=== PATIENT | female | born 1945 | race Caucasian/White ===

== ENCOUNTER → 2018-06-28 12:39 | Outpatient (CLI) | payer OTHER, SELFPAY ==
[2018-06-28 13:19] LABS: Add Manual Diff / Slide Review NO; Eosinophils Percent Auto 1.6 % (2-4); Hematocrit 39.6 % (36-46); Hemoglobin 13.5 g/dL (12.0-16.0); Mean Corpuscular Hemoglobin 29.6 PG (26-34); Mean Corpuscular Volume 87.1 fL (80-100); Monocytes Percent Auto 5.2 % (3-14); Neutrophils Absolute Auto 3700 /uL (3000-5900); Neutrophils Percent Auto 56.2 % (50-75); Platelet Count 238 X10^3/uL (150-400); Red Blood Cell Count 4.55 X10^6/uL (4.0-5.2); Red Cell Distribution Width 13.2 % (11.6-14.8); White Blood Cell Count 6.6 X10^3/uL (4.5-11.0)
[2018-06-28 13:21] LABS: Prothrombin Time 11.4 SECONDS (10.1-12.7)
[2018-06-28 13:24] LABS: PTT Partial Thromboplastin Tim 32 SECONDS (26.4-36.2)
[2018-06-28 14:56] LABS: BUN Creatinine Ratio 28.9 (6-22); Blood Urea Nitrogen 26 mg/dL (7-17); Carbon Dioxide 27 mmol/L (22-32); Chloride 102 mmol/L (98-107); Estimated Glomerular Filt Rate > 60.0 mL/min (>60); Glucose 108 mg/dL (80-110); HEMOLYSIS < 15 (0-50); Potassium 3.3 mmol/L (3.4-5.1); Sodium 141 mmol/L (137-145)
== END ==
PROVIDERS: PCP Nurse Practitioner Family; Visit Provider Orthopaedic Surgery
DX: Z01.818 Encounter for other preprocedural examination (principal); Z01.812 Encounter for preprocedural laboratory examination; Z51.81 Encounter for therapeutic drug level monitoring
CPT/HCPCS: 36415; 80048; 85025; 85610; 85730; 93005

== ENCOUNTER 2018-07-14 06:04 | Inpatient (IN) | payer OTHER, SELFPAY ==
[2018-06-30 10:56] VITALS: BMI 31.5
[2018-07-14] VITALS (17 sets, daily range): BP systolic 93–137; BP diastolic 57–89; PULSE 61–91; RESP 14–22; TEMP 36.1–36.8; O2SAT 92–99; BMI 31.5; BMI 33.0
--- NOTE | 2018-07-14 | DI.RAD.S_ITS ---
PROCEDURE: XR SHOULDER LT MIN 2V INDICATIONS: total left shoulder TECHNIQUE: 2 views of the shoulder were acquired. COMPARISON: [facility], , SHOULDER MINIMUM 2 VIEW LEFT, 12/31/2014, 13:20. FINDINGS: Bones: Status post left shoulder arthroplasty. Expected postoperative alignment. No fractures or dislocations. No suspicious bony lesions. Visualized ribs appear intact. Soft tissues: Overlying postsurgical changes.. IMPRESSION: Expected postoperative appearance. Dictated by: Christiano Rivas M.D. on 07/14/2018 at 14:02 Approved by: Christiano Rivas M.D. on 07/14/2018 at 14:07
[2018-07-14] MEDS: LACTATED RINGERS 1,000 ML 42 ML IV ×2 (06:55→11:19)
[2018-07-14] MEDS: VANCOMYCIN 1,000 MG/200 ML FROZ.PIGGY 200 MG IV (07:01)
[2018-07-14] MEDS: ACETAMINOPHEN 325 MG TABLET 975 MG PO (07:26)
[2018-07-14] MEDS: MIDAZOLAM 2 MG/2 ML VIAL IV (07:42)
--- NOTE | 2018-07-14 07:52 | SUR.PREOP ---
Block start time [0746] . Monitoring initiated and maintained throughout procedure. Oxygen and medications given per anesthesiologist instructions. Patient remained stable throughout procedure, no adverse reactions noted. Block end time [0750].
--- NOTE | 2018-07-14 07:54 | PM.PREOP ---
Pre-operative Note Interval Note Pre-op Check: Yes History & Physical Reviewed by Physician Changes: No
[2018-07-14] MEDS: GENTAMICIN 200 MG in SODIUM CHLORIDE 0.9% 100 ML 105 ML IV (08:18)
--- NOTE | 2018-07-14 08:34 | SUR.OPER ---
Beach chair with Rivera/Aditi shoulder positioner. Lower body on padded OR bed. Head in foam padded head cradle, secured with straps. Non-operative arm secured <90 degrees abduction. Pillow under knees. Safety belt at thigh. Cloth tape over blanket over lower legs.
--- NOTE | 2018-07-14 08:35 | P.PCN_ITS ---
Procedures Date/Time Date of procedure: 07/14/18 Time of procedure: 07:45 Nerve Block Time out performed: Yes Local anesthetic used: other (15mL 0.5 opivacaine, 5mL 2* idocaine) Location of anesthetic used: interscalene Amount of anesthesia used (mL): 20 Nerve blocks: brachial plexus (interscalene) Procedure successful: Yes Patient tolerated procedure: well Complications: none Additional comments: LEFT Brachial plexus nerve block for post operative pain management as discussed with surgeon. Risks and benefits discussed, including bleeding, infection, intravascular injection, nerve damage, block failure. Standard ASA monitors, NC O2. Pt supine. Chloroprep site preparation, sterile technique. Brachial plexus identified with US guidance, traced from supraclavicular to interscalene. 1mL 2% lidocaine skin wheal. 22g x 50mm Pajunk advanced with in-plane US guidance to brachial plexus. Negative aspiration. LA injected with intermittent negative aspiration. Good LA spread noted on US. No pain, no paraesthesia. Pt tolerated procedure well. Vital signs stable.
[2018-07-14] MEDS: LIDOCAINE 1% W/EPI INJ 20 ML INJ (08:49)
--- NOTE | 2018-07-14 10:02 | P.OP_ITS ---
Operative Date/Time/Diagnoses Date of procedure: 07/14/18 Time of procedure: 08:00 Pre-op diagnosis: Left shoulder arthritis Post-op diagnosis: same Procedure & Clinicians Procedure: Left total shoulder arthroplasty Same procedure as scheduled: Yes Indications: Left glenohumeral joint end-stage arthritis unresponsive to conservative treatment. Surgeon: Yayo Rubalcava Shuttle Fitting Supervisor: Yi Francois Click Yes if Unassisted: No Anesthesia Type: General and Peripheral nerve block Operative Notes Findings: End-stage arthritis to the glenohumeral joint with no sign of any rotator cuff tears. Closure Type: primary Specimen(s): none sent Implants & Drains: Tornier 2A stem, 43x16 low offset head, S35 glenoid Applied: drain(s) and implant(s) Estimated Blood Loss (mL): 25 Blood products transfused: none Procedure in detail: On date of service, Patient was met in the holding area. The operative site was signed and witnessed by the OR staff. The surgeries once again discussed with the patient and any remaining questions they had were answered fully. Patient was taken back to the operating theater and placed on the operating table in a supine position. Great care was taken to ensure that all bony prominences were properly padded. Patient was then placed into the beach chair position. The head and neck were properly positioned and secured. A timeout was performed verifying patient's name, procedure, and the operative site. The upper extremity was then prepped and draped in the normal sterile fashion. Previously, the bony anatomy and incision were marked out as well as injected with Marcaine with epinephrine. A deltopectoral approach was performed. 10 blade was used to incise the skin and fascial tissue. A deep knife was used to continue sharp dissection until the cephalic vein was visualized. The cephalic vein was dissected free allowing us to expose the deltopectoral interval. This interval was then developed. A Mcpherson elevator was used to free up the deltoid of any scarring both superficially as well as deeply. The vein and the deltoid were taken laterally while the pectoralis was taken medially. This gave us good visualization of the strap muscles. The clavipectoral fascia was removed and the strap muscles were then retracted medially with the pectoralis. This gave us stabilization of the subscapularis. The circumflex vessels were ligated and the subscapularis was sharply excised off the lesser tuberosity and then tagged. Once the subscapularis was released we're able to dislocate the shoulder. Patient had end-stage arthritic changes to the humeral head as well as the glenoid with large osteophytes anterior inferiorly as well as posteriorly. A Ronger was then used to remove the osteophytes. Next, cutting guide was placed and a saw was used to remove the humeral head. Once the head was removed it was templated. A starting awl was then used to find the canal and then the humerus was reamed and broached. Trial stem was placed and a variety of heads were trialed. A protector placed for the osteotomy was then placed and and we turned our attention back to the subscapularis as well as the glenoid. The subscapularis was freed up and a 360? fashion. The degenerative anterior and inferior capsular tissue was removed. This was followed by removing the degenerative labral tissue from around the glenoid as well as the biceps insertion. This gave us good visualization of the glenoid. Glenoid trials were used until we found the appropriate fit and curvature. Next the center hole was drilled followed by reaming of the glenoid. The wound was copiously irrigated after reaming. Next the pegs were drilled and a trial glenoid was impacted into place. Once we were satisfied with the preparation of the glenoid , the final component was cemented into place. This was followed by impaction. We Return to our attention back to the humerus. The protector plate was removed and heads were trialed once again and so we found the appropriate fit. The trials were removed and bone tunnels were made into the humeral neck. #2 FiberWire were passed through the bone tunnels for eventual subscapularis repair. The final stem and head were impacted into place and the shoulder was reduced. It was taken through range of motion and was felt to be stable in both posterior translation as well as external and internal rotation with abduction. The subscapularis was repaired back to the lesser tuberosity through the bone tunnels. This was then reinforced with soft tissue repair. Part of the rotator interval was then closed. A drain was placed and the rest of the wound was closed in a layered fashion. The shoulder was then cleaned dried and dressed and the patient was taken to the PACU in stable condition. Patient will follow our postoperative protocol for total shoulder arthroplasty. Complications: none Condition: stable Disposition: Acute Care Plan for aftercare: Sling for 6 weeks. Subscapularis needs to be protected. Patient will follow our postop protocol for total shoulder arthroplasty.
[2018-07-14] MEDS: LACTATED RINGERS 1,000 ML 125 ML IV ×2 (13:03→21:07)
--- NOTE | 2018-07-14 14:39 | PC.NURSE ---
1110 Pt arrived to room 229 via bed from PACU, post op Left shoulder repair. Hemovac in place to l shoulder, drng bloody fluid. SL R hand intact. Pt is awake, alert, oriented x 3. Able to wiggle L fingers/hand. applied SCDs BLE. Pt very pleasant, denies pain. Spouse at bedside.
--- NOTE | 2018-07-14 15:49 | CM.IDA ---
DCP Assessment Note: Pt is a 73 yo female, resident of [place]. Pt here for a scheduled shoulder surgery w/Dr Rubalcava. Pt's PCP is FAVIAN Curtis; Insurance is [facility]. Pt in the OR today, will attempt assessment tomorrow, POD#1. MEL Sauceda Discharge Planning/Care Management CM Discharge Assessment Start: 07/14/18 15:44 Freq: Status: Active Protocol: Document 07/14/18 15:44 [email or web address] (Rec: 07/14/18 15:49 [id number]) Discharge Planning Assessment Assigned Collar Shaper Operator MEL Andersen DPOA/Assigned Designee Name David () Contact Information [phone] Advance Directives? Yes Advance Directives on File No History Provided By Patient Prior Living Arrangements House Household Members spouse Type of transporation used prior to Relies on Others admit Independent with ADL's Yes: Mostly. Needs assist w/ ADLs d/t shoulder pain and immobility Is patient alert and oriented? Yes Comment Awaiting PT eval, pt was in the OR today for shoulder surgery. Discharge Plan Home Transportation Arrangement Likely spouse/family/friends Referrals Initiated None needed Additional Comment Hopefully DC home w/spouse as planned. Review Status In Process
--- NOTE | 2018-07-14 15:56 | PT.IIE ---
Addendum entered and electronically signed by Kelly Alonzo, PT 07/15/18 09:26: This is to certify that I have reviewed this documentation and POC Original Note: Current Diagnoses Primary osteoarthritis, right shoulder (07/14/18) Presence of unspecified artificial shoulder joint (07/14/18) Surgery Performed Operation Date: 07/14/18 07:45 Actual Procedures p Reconstruct Shoulder Joint(Left) - Yayo Rubalcava MD Surgical History (Last Updated 06/30/18 @ 11:31 by Monique Bran RN) History of tonsillectomy and adenoidectomy (Acute) Hx of appendectomy (Acute) Hx of tubal ligation (Acute) Status post bilateral cataract extraction (Acute) Medical History (Last Updated 06/30/18 @ 11:31 by Monique Bran RN) Achilles rupture, right (Acute) Anxiety (Acute) Bilateral hip pain (Acute) Bilateral shoulder pain (Acute) Depression (Acute) Dry skin (Acute) Easy bruisability (Acute) Edema (Acute) GERD (gastroesophageal reflux disease) (Acute) HTN (hypertension) (Acute) Hyperlipidemia (Acute) Neck pain (Acute) Numbness and tingling in both hands (Acute) BRETT on CPAP (Acute) Physical Therapy Inpatient Evaluation/Re-Eval M1 PT/OT-IP Prior Functional Status Start: 07/14/18 16:51 Freq: NEEDED Status: Active Protocol: Document 07/14/18 15:56 (Rec: 07/14/18 17:40 [id number]) Medical Review Prior Functional Status Medical History Reviewed Yes Communication No deficits noted. Mobility and Gait Prior to this admit pt states all outdoor ambulation was modified indep using a walking stick. Indoor ambulation was independent with no AD. She required assistance with all showering and dressing due to severely limited ROM of B shoulders. She was able to toilet indep. Social History Household Members spouse Living Arrangements House Number of Floors (Floors) One Floor Number of Stairs To Enter/Railing? 5 steps to enter B wide rails. Home Environment Standard Height Toilet Tub/Shower Home Equipment Shower Seat without Backrest Hand Held Shower Grab Bars In Shower Employment Status Unknown Additional Social History Comment She plans to sleep in recliner . She is able to ascend from toilet using a counter/sink on R and a built in wall heater on the L. M2 PT-IP Current Condition Start: 07/14/18 16:51 Freq: NEEDED Status: Active Protocol: Document 07/14/18 15:56 (Rec: 07/14/18 17:40 [id number]) Physical Therapy Current Condition Current Condition Evaluation Date 07/14/18 Treatment Diagnosis L TSA; Impaired mobility; difficulty walking Onset Date 07/14/2018 Precautions Shoulder Precautions Sling PROM Internal Rotation to Body No External Rotation No Abduction Forward Flexion to 90 degrees Pendulums Weight Bearing Status Weight Bearing Status Non-Weight Bearing Allowed Weight Bearing Amount (enter % L shoulder non weight bearing or #) (%) M3 PT-IP Subjective Start: 07/14/18 16:51 Freq: NEEDED Status: Active Protocol: Document 07/14/18 15:56 (Rec: 07/14/18 17:40 [id number]) Subjective Physical Therapy Visit Type Type Initial Evaluation Visit Start Time 15:56 Visit Stop Time 16:51 Total Visit Minutes 55 Number of HIGH SCHOOL COORDINATOR Visits 0 Physical Therapy Visit Comments Patient Comments Pt agrees to mobilize with PT including ambulation. Patient Goals Pt plans to d/c home with . Therapy Pain Assessment Pain Present Pain Present Denied Pain M4 PT-IP Mobility and Gait Start: 07/14/18 16:51 Freq: NEEDED Status: Active Protocol: Document 07/14/18 15:56 (Rec: 07/14/18 17:40 [id number]) PT-Bed Mobility Assessment Supine to Sit Supine to Sit Contact Guard Assistance Head of Bed Elevated Scooting Scooting to Edge of Bed Standby Assistance PT-Transfer Assessment Sit to and From Stand Sit to and from Stand Contact Guard Assistance Equipment Transfer Assistive Device Gait Belt Large Based Quad Cane Orthotic/Prosthetic Devices or Brace: Yes Transfers Transfer Destination Chair Transfer Technique Stand Step Pivot Transfer Ability Level of Assist Contact Guard Assistance Use of Upper Extremities Comments Mobility Comments Resting/Supine/Stone's BP is 107/70 and pt O2 sat is 98% on 1 L/min. Oxygen removed and pt maintains 94-98% after 1-2 mins and patient able to speak easily. Supine > Sit is performed CGA with pt needing verbal and tactile cues to use non-op RUE to assist pivoting to EOB. Sitting EOB she reports mild dizziness and O2 sat 88% to low 90's. 1L O2 is returned and she is instructed to rest while sling education is performed. O2 sats return to high 90's and pt [facility] > chair is performed CGA with quad cane and mod cues for cane and foot placement as well as cues to use RUE to assist ascend/ descend. Gait Assessment Gait Gait Assistance Required: Contact Guard Assist Distance (Feet) 10 Able to Maintain Weight Bearing Status Yes During Gait Assistive Devices Assistive Device Gait Belt Large Based Quad Cane Orthotic/Prosthetic Devices or Brace: Yes Gait Deviations General Gait Pattern Step-to Gait Factors Limiting Gait Function Factors Limiting Gait Function Decreased Activity Tolerance Decreased Sensation Decreased Strength Incoordination Poor Balance Poor Safety Awareness Comments Gait Comments Pt ambulates 10 ft to/from sink (performs standing pendulum exercises at sink- see below). Ambulation is performed with CGA and wide based quad cane. Tried 2 pt gait pattern with quad cane but pt had poor gait quality despite max cues. Instructed in 3 pt gait pattern and pt has improved gait quality however, despite max cues for 3 pt step-to gait pattern she demonstrates inconsistent stride length. She also requires min cues for upright posture. PT-Balance Assessment Sitting Balance and Reactions Static Sitting Balance Ability Good Dynamic Sitting Balance Ability Good Standing Balance and Reactions Static Standing Balance Ability Good Dynamic Standing Balance Ability Fair Device Used wide base quad cane M5 PT-IP Objective Assessments Start: 07/14/18 16:51 Freq: NEEDED Status: Active Protocol: Document 07/14/18 15:56 (Rec: 07/14/18 17:40 [id number]) Orientation Orientation/Cognition Level of Alertness Alert Orientation Name Birthday Place Situation Language Function Ability No Deficits Noted Safety Awareness Decreased Safety Awareness Gross Range of Motion Lower Extremity ROM Assessment Left Impaired M6 PT-IP Treatment Start: 07/14/18 16:51 Freq: NEEDED Status: Active Protocol: Document 07/14/18 15:56 (Rec: 07/14/18 17:40 [id number]) Physical Therapy Treatment Exercises Exercises Shoulder Pendulums Elbow Flexion/Extension Wrist ROM Hand ROM Education Education Provided Precautions Weight Bearing Status Post-Op Packet Safety Brace Education [place] Patient Caregiver Equipment Issued Equipment Type and Company Shoulder sling. Pt had one on already, but it was too large . More appropriate size sling was fitted this session. Other Treatments Other Treatment Performed Shoulder pendulums instruction began with passive shoulder distraction (dangling) arm while leaning on the counter. The patient had difficulty doing this exercise without activating her L shoulder and so we did not progress to pendulum. She was instead instructed only in passive distraction which, with max cues, she was able to perform. Caregiver/Spouse and pt were instructed in donning/doffing of sling. Caregiver/Spouse and pt verbalize understanding but have not yet demonstrated independent performance. Instructions for bathing and dressing also discussed. M7 PT-IP Assessment and Plan Start: 07/14/18 16:51 Freq: NEEDED Status: Active Protocol: Document 07/14/18 15:56 (Rec: 07/14/18 17:40 [id number]) PT Summary Assessment and Plan Potential Rehabilitation Potential Good Status of Condition at Evaluation Evolving Summary Impairments ROM Strength Balance Sensation Bed Mobility Transfers Gait Activity Tolerance Progress Towards Goals Slow Progress due to Activity Tolerance Assessment Summary Pt s/p L TSA with impaired mobility and difficulty walking. She was able to complete sit <> stand CGA and ambulate 10 ft CGA during today's session but required 1 L to maintain O2 sats ( decreased to 88% on room air). Recommend d/c to home with 24/7 assist and HH at this time. Goals Bed Mobility Goal Independent Transfer Goal Independent Cane Gait Goal Standby Assistance Cane Gait Distance 150 Other Goals up/down 5 steps B rail CGA as needed for safe access to home . Frequency of Treatment Frequency Of Treatment Twice a Day Treatment Plan Physical Therapy Treatment Plan Bed Mobility Training Transfer Training Gait Training Therapeutic Exercise Balance Retraining Post Op Education Discharge Planning Hot or Cold Pack Neuromuscular Re-ed Coordination Retraining Manual Therapy Other Recommendations and Next Treatment will be here at 8-9 am Focus for additional caregiver training (chance to demo sling doffing/donning, stair climbing) Recommendations To Nursing Amount of Assist Needed 1 Person Assist Discharge Recommendations PT Discharge Recommendations Home with 24/7 Assist Home Health
[2018-07-14] MEDS: OXYCODONE IR 5 MG TABLET PO (19:03)
[2018-07-14] MEDS: MAGNESIUM HYDROXIDE 30 ML UDC PO (20:23)
[2018-07-14] MEDS: DOCUSATE 100 MG CAPSULE PO (20:24)
[2018-07-14] MEDS: TELMISARTAN 40 MG TABLET PO (20:24)
[2018-07-14] MEDS: HYDROMORPHONE PCA 6 MG/30 ML PCA.VIAL IV (22:11)
[2018-07-15 00:30] VITALS: BP 93/66; PULSE 72; RESP 18; TEMP 36.7; O2SAT 93
--- NOTE | 2018-07-15 05:09 | PC.NURSE ---
Pt's. left arm is on a sling. Pt. denies numbness and tingling to left hand/fingers.
[2018-07-15 05:15] VITALS: BP 114/67; PULSE 79; RESP 18; TEMP 36.6; O2SAT 97
[2018-07-15] MEDS: PANTOPRAZOLE 20 MG TABLET PO (05:24)
[2018-07-15] MEDS: LACTATED RINGERS 1,000 ML 125 ML IV (05:24)
[2018-07-15] MEDS: HYDROMORPHONE PCA 6 MG/30 ML PCA.VIAL IV (05:32)
--- NOTE | 2018-07-15 05:33 | PC.NURSE ---
Cleared 2.2 mg. Dilaudid HYDRAMATIC SPECIALIST.
[2018-07-15 05:37] LABS: Hemoglobin 10.6 g/dL (12.0-16.0); Mean Corpuscular HGB Conc 34.1 % (30-36); Mean Corpuscular Hemoglobin 29.5 PG (26-34); Mean Corpuscular Volume 86.4 fL (80-100); Platelet Count 198 X10^3/uL (150-400); Red Blood Cell Count 3.59 X10^6/uL (4.0-5.2); Red Cell Distribution Width 13.2 % (11.6-14.8); White Blood Cell Count 10.8 X10^3/uL (4.5-11.0)
--- NOTE | 2018-07-15 07:29 | PM.PNPO.1 ---
Subjective Date Patient Seen: 07/15/18 Time Patient Seen: 07:29 Interval history: POD #1 s/p TSA with Dr. Rubalcava. Patient had a lot of pain yesterday and was started on Dilaudid MAJOR ASSEMBLY LINEMAN. The block has worn off. She has not been up with physical therapy. Exam Vital Signs (past 8 hours): - 07/15/18 00:30 07/15/18 05:15 Temperature 98.1 F 97.9 F Pulse Rate 72 79 Respiratory Rate 18 18 Blood Pressure 93/66 114/67 Pulse Oximetry 93 97 Oxygen Delivery Method CPAP Oxygen Flow Rate 1 Narrative Exam Narrative: Patient lying in bed in no acute distress. Patient wearing sling. Vice President Of Advertising strength strong and equal. Radial pulses symmetrical. Dressing in place on left shoulder. Sensation intact light touch throughout bilateral upper extremities. Objective Labs Result Diagrams: 07/15/18 04:57 Labs: Laboratory Results - last 24 hr 07/15/18 04:57 WBC 10.8 RBC 3.59 L Hgb 10.6 L Hct 31.0 L MCV 86.4 MCH 29.5 MCHC 34.1 RDW 13.2 Plt Count 198 Assessment & Plan Post-op (1) Status post total shoulder arthroplasty: Current Visit: Yes Status: Acute Postoperative Procedures Operation Date: 07/14/18 07:45 Actual Procedures Side Surgeon p Reconstruct Shoulder Joint Left Yayo Rubalcava MD POD #1 s/p TSA with Dr. Rubalcava. Stop MAJOR ASSEMBLY LINEMAN. Will start patient on oral dilaudid. DC drain prior to discharge. Will mobilize with PT today. Plan to discharge either today or tomorrow if mobilizing safely with adequate pain control. Quality VTE Deep Vein Thrombosis/Pulmonary Embolism Present on Admission: No
--- NOTE | 2018-07-15 07:32 | P.PN_ITS ---
Subjective Date Patient Seen: 07/15/18 Time Patient Seen: 07:29 Interval history: POD #1 s/p TSA with Dr. Rubalcava. Patient had a lot of pain yesterday and was started on Dilaudid MIDWIFE. The block has worn off. She has not been up with physical therapy. Exam Vital Signs (past 8 hours): - 07/15/18 00:30 07/15/18 05:15 Temperature 98.1 F 97.9 F Pulse Rate 72 79 Respiratory Rate 18 18 Blood Pressure 93/66 114/67 Pulse Oximetry 93 97 Oxygen Delivery Method CPAP Oxygen Flow Rate 1 Narrative Exam Narrative: Patient lying in bed in no acute distress. Patient wearing sling. Railroad Purchasing Agent strength strong and equal. Radial pulses symmetrical. Dressing in place on left shoulder. Sensation intact light touch throughout bilateral upper extremities. Objective Labs Result Diagrams: 07/15/18 04:57 Labs: Laboratory Results - last 24 hr 07/15/18 04:57 WBC 10.8 RBC 3.59 L Hgb 10.6 L Hct 31.0 L MCV 86.4 MCH 29.5 MCHC 34.1 RDW 13.2 Plt Count 198 Assessment & Plan Post-op (1) Status post total shoulder arthroplasty: Current Visit: Yes Status: Acute Postoperative Procedures Operation Date: 07/14/18 07:45 Actual Procedures Side Surgeon p Reconstruct Shoulder Joint Left Yayo Rubalcava MD POD #1 s/p TSA with Dr. Rubalcava. Stop MIDWIFE. Will start patient on oral dilaudid. DC drain prior to discharge. Will mobilize with PT today. Plan to discharge either today or tomorrow if mobilizing safely with adequate pain control. Quality VTE Deep Vein Thrombosis/Pulmonary Embolism Present on Admission: No
[2018-07-15 07:56] VITALS: BP 106/62; PULSE 69; RESP 18; TEMP 36.4; O2SAT 98
[2018-07-15] MEDS: HYDROMORPHONE 4 MG TABLET PO ×2 (08:43→12:31)
[2018-07-15] MEDS: DOCUSATE 100 MG CAPSULE PO (08:46)
[2018-07-15] MEDS: CHLORTHALIDONE 25 MG TABLET 50 MG PO (08:46)
[2018-07-15] MEDS: POTASSIUM CHLORIDE 10 MEQ TAB 20 MEQ PO (08:47)
[2018-07-15] MEDS: CITALOPRAM 20 MG TABLET 40 MG PO (08:47)
[2018-07-15] MEDS: METOPROLOL ER 25 MG TABLET PO (08:47)
[2018-07-15] MEDS: TELMISARTAN 40 MG TABLET PO (08:48)
--- NOTE | 2018-07-15 09:35 | PT.IPTN ---
Current Diagnoses Primary osteoarthritis, right shoulder (07/14/18) Presence of unspecified artificial shoulder joint (07/14/18) Surgery Performed Operation Date: 07/14/18 07:45 Actual Procedures p Reconstruct Shoulder Joint(Left) - Yayo Rubalcava MD Physical Therapy Treatment Note M2 PT-IP Current Condition Start: 07/14/18 16:51 Freq: NEEDED Status: Active Protocol: Document 07/14/18 15:56 (Rec: 07/14/18 17:40 [id number]) Physical Therapy Current Condition Current Condition Evaluation Date 07/14/18 Treatment Diagnosis L TSA; Impaired mobility; difficulty walking Onset Date 07/14/2018 Precautions Shoulder Precautions Sling PROM Internal Rotation to Body No External Rotation No Abduction Forward Flexion to 90 degrees Pendulums Weight Bearing Status Weight Bearing Status Non-Weight Bearing Allowed Weight Bearing Amount (enter % L shoulder non weight bearing or #) (%) M3 PT-IP Subjective Start: 07/14/18 16:51 Freq: NEEDED Status: Active Protocol: Document 07/15/18 09:35 GGD (Rec: 07/15/18 12:30 GGD [id number]) Subjective Physical Therapy Visit Type Type Treatment Note Visit Start Time 09:00 Visit Stop Time 09:35 Total Visit Minutes 35 Number of HONEY EXTRACTOR Visits 1 Physical Therapy Visit Comments Patient Comments Pt states she getting a quad cane for home. Therapy Pain Assessment Pain When Pain Assessed At Rest Pain Present Pain Present Pain Reported Location Left Shoulder Intensity 4 Scale Used Numeric (1 - 10) M4 PT-IP Mobility and Gait Start: 07/14/18 16:51 Freq: NEEDED Status: Active Protocol: Document 07/15/18 09:35 GGD (Rec: 07/15/18 12:30 GGD [id number]) PT-Bed Mobility Assessment Supine to Sit Supine to Sit Contact Guard Assistance Head of Bed Elevated Scooting Scooting to Edge of Bed Standby Assistance PT-Transfer Assessment Sit to and From Stand Sit to and from Stand Contact Guard Assistance Equipment Transfer Assistive Device Gait Belt Large Based Quad Cane Orthotic/Prosthetic Devices or Brace: Yes Transfers Transfer Destination Chair Wheelchair Transfer Ability Level of Assist Contact Guard Assistance Use of Upper Extremities Gait Assessment Gait Gait Assistance Required: Contact Guard Assist Distance (Feet) 60 Able to Maintain Weight Bearing Status Yes During Gait Assistive Devices Assistive Device Gait Belt Large Based Quad Cane Orthotic/Prosthetic Devices or Brace: Yes Gait Deviations General Gait Pattern Step-to Gait Factors Limiting Gait Function Factors Limiting Gait Function Decreased Activity Tolerance Decreased Sensation Decreased Strength Incoordination Poor Balance Poor Safety Awareness Comments Gait Comments Pt ambulates 60 feet x 2 with transfer to w/c Stair Climbing Assessment Evaluation Level of Assist On Stairs Contact Guard Assistance Devices Stair Climbing Assistive Devices Left Railing Right Railing Technique/Endurance Stair Climbing Direction Ascend and Descend Stair Climbing Technique Step to Step Number of Steps Climbed 3 Query Text: Stair Climbing Set # Repetitions (reps) 1 M5 PT-IP Objective Assessments Start: 07/14/18 16:51 Freq: NEEDED Status: Active Protocol: Document 07/14/18 15:56 (Rec: 07/14/18 17:40 [id number]) Orientation Orientation/Cognition Level of Alertness Alert Orientation Name Birthday Place Situation Language Function Ability No Deficits Noted Safety Awareness Decreased Safety Awareness Gross Range of Motion Lower Extremity ROM Assessment Left Impaired M6 PT-IP Treatment Start: 07/14/18 16:51 Freq: NEEDED Status: Active Protocol: Document 07/15/18 09:35 GGD (Rec: 07/15/18 12:30 GGD [id number]) Physical Therapy Treatment Exercises Exercises Shoulder Pendulums Elbow Flexion/Extension Wrist ROM Hand ROM Education Education Provided Precautions M7 PT-IP Assessment and Plan Start: 07/14/18 16:51 Freq: NEEDED Status: Active Protocol: Document 07/15/18 09:35 GGD (Rec: 07/15/18 12:30 GGD [id number]) PT Summary Assessment and Plan Summary Assessment Summary Pt progressing with mobility. She was able to progress gait distance and was stable with quad cane. She was safe and stable with stair mobility. She safe for D/C home when medically stable. Frequency of Treatment Frequency Of Treatment Twice a Day Treatment Plan Physical Therapy Treatment Plan Bed Mobility Training Transfer Training Gait Training Therapeutic Exercise Balance Retraining Post Op Education Discharge Planning Hot or Cold Pack Neuromuscular Re-ed Coordination Retraining Manual Therapy Recommendations To Nursing Amount of Assist Needed 1 Person Assist Discharge Recommendations PT Discharge Recommendations Home with 12/04 Assist Home Health
[2018-07-15] MEDS: OXYCODONE IR 5 MG TABLET PO ×2 (10:24→14:30)
[2018-07-15] MEDS: ACETAMINOPHEN 325 MG TABLET 650 MG PO (11:06)
[2018-07-15 11:30] VITALS: BP 110/66; PULSE 64; RESP 18; TEMP 36.4; O2SAT 91
[2018-07-15] MEDS: HYDROMORPHONE 2 MG TABLET PO (11:40)
--- NOTE | 2018-07-15 13:52 | P.DS_ITS ---
History of Present Illness Date Patient Seen: 07/15/18 Time Patient Seen: 06:52 Chief complaint: reconstruct shoulder joint left [id number] Narrative: Left glenohumeral joint end-stage arthritis unresponsive to conservative treatment. Discharge Providers Date of admission: 07/14/18 06:04 Primary care physician: FAVIAN Richards Consults: 07/14/18 06:00 Consult to Anesthesiology Routine Comment: Consulting Provider: Anesthesiologist Reason for consultation: Regional block for post operative pain control 07/14/18 10:50 Consult to Discharge Planning Routine Comment: Consult to Physical Therapy Evaluate & Treat Comment: Physician Instructions: Evaluate and Treat Consult to Respiratory Therapy Evaluate & Treat Comment: Physician Instructions: Evaluate and treat 07/14/18 11:46 Consult to Physical Therapy Evaluate & Treat Comment: anes peripheral nerve block Physician Instructions: Evaluate and Treat 07/14/18 14:19 Consult to Physical Therapy Evaluate & Treat Comment: Physician Instructions: Evaluate and Treat Discharge provider: Afia Diana PA-C Discharge Date: 07/15/18 Summary Discharge Diagnosis: s/p left total shoulder arthroplasty sleep apnea depression hypertension Hospital Course: Kirsty admitted for left total shoulder arthroplasty with Dr. Rubalcava and she consented to procedure. Hospital course unremarkable. On POD #1 patient was doing well and ready to discharge home. She had been up with PT and ambulating in the otero. Pain well controlled with Oxycodone. She is eating and voiding without difficulty or assistance. Exam Vital Signs (past 8 hours): - 07/15/18 07:56 07/15/18 11:30 Temperature 97.6 F 97.6 F Pulse Rate 69 64 Respiratory Rate 18 18 Blood Pressure 106/62 110/66 Pulse Oximetry 98 91 Oxygen Delivery Method CPAP Oxygen Flow Rate 0 Narrative Exam Narrative: Patient lying in bed in NAD. She is alert and oriented X3. Dressing on left shoulder is CDI. Calves are soft, compressible and nontender bilaterally. SILT throughout BUEs. Studio Sales Associate strength strong and equal. Radial pulses are symmetrical. Pain controlled with dilaudid planning aide. Patient switched to oral dilaudid and oxycodone. Patient doing well on Oxycodone. Objective Labs Result Diagrams: 07/15/18 04:57 Labs: Laboratory Results - last 24 hr 07/15/18 04:57 WBC 10.8 RBC 3.59 L Hgb 10.6 L Hct 31.0 L MCV 86.4 MCH 29.5 MCHC 34.1 RDW 13.2 Plt Count 198 Discharge Plan Discharge Plan Patient Disposition: Home Discharge comment: DC home today with new dressing Discharge Med Rec/Prescriptions Prescriptions: New oxycodone 5 mg Tablet 5 mg PO Q4HR Qty: 60 RF: 0 aspirin 81 mg tablet,delayed release (DR/EC) 81 mg PO BID Qty: 60 RF: 0 Continue potassium chloride 10 mEq Capsule, Extended Release 2 tab PO DAILY RF: 0 citalopram 40 mg Tablet 40 mg PO DAILY RF: 0 chlorthalidone 50 mg Tablet 50 mg PO DAILY RF: 0 alprazolam 0.25 mg Tablet 0.25 mg PO Q8H PRN (Reason: Anxiety) RF: 0 telmisartan 40 mg Tablet 40 mg PO BID RF: 0 omeprazole 20 mg Capsule,Delayed Release(Dr/Ec) 20 mg PO DAILY RF: 0 metoprolol succinate 25 mg Tablet Extended Release 24 Hr 25 mg PO DAILY RF: 0 Follow up/Referrals: Santa Curtis ARNP [Primary Care Provider] - Yayo Rubalcava MD [Physician] - (Please follow up with [facility] in 10-14 days with PAYovani) Provider Discharge Instructions Activity: Sling for 6 weeks. Subscapularis needs to be protected. Patient will follow our postop protocol for total shoulder arthroplasty. Cold/Heat Therapy: as needed Skin/Wound/Dressing Care Report to your healthcare provider any signs of infection, such as:: chills, fever and increased pain Dressing: Keep dressing in place until appointment Visit Report/Discharge Packet Instructions: DI for Heart Failure, DI for Shoulder Replacement, Stool Softeners, Acetaminophen, Oxycodone Discharge Data Primary Care Provider: Santa Curtis Attending Provider: Yayo Rubalcava Admit Date/Time: 07/14/18 06:04 Discharge Interventions Interventions: Discharge assessment Last Done: 07/14/18 10:50 Quality VTE Deep Vein Thrombosis/Pulmonary Embolism Present on Admission: No
--- NOTE | 2018-07-15 15:02 | PC.NURSE ---
Day shift: Patient left unit at approx 1450. Private car via WC by this sign writer hand. Paperwork signed and questions answered. Went over extra how to manage the pain. Pt instructed to call MD if current pain meds don't cover the pain. Pt has all personal belongings as well
--- NOTE | 2018-07-15 16:51 | CM.DPC ---
DC NOte: Met w/pt and spouse before pt's DC today. Both felt confident about pt's return home w/spouse and friends to assist prn. 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 P: Home w/spouse today and outpt f/u. MEL Sauceda
== END 2018-07-15 15:03 | disposition home or self-care (01) | DRG 483 ==
PROVIDERS: Admitting Provider Orthopaedic Surgery; PCP Nurse Practitioner Family; Visit Provider Orthopaedic Surgery
PROC: 0RRK0JZ Replacement of Left Shoulder Joint with Synthetic Substitute, Open Approach (ICD-10-PCS; CPT 23472; principal; 2018-07-14 07:45)
DX: M19.011 Primary osteoarthritis, right shoulder (principal); I10 Essential (primary) hypertension; F32.9 Major depressive disorder, single episode, unspecified; G47.33 Obstructive sleep apnea (adult) (pediatric); F41.9 Anxiety disorder, unspecified
CPT/HCPCS: 36415; 64415; 73030; 85027; 97116; 97162; 97530; C1776; J1100; J2250; J2405; J2704; J3010; J3370

== ENCOUNTER 2018-10-20 11:14 | Emergency (ER) | payer OTHER, SELFPAY ==
[2018-07-14 12:30] VITALS: BMI 33.0
[2018-10-20 11:15] VITALS: BP 118/76; PULSE 69; RESP 18; TEMP 37.1; O2SAT 99
--- NOTE | 2018-10-20 12:07 | PC.NURSE ---
pt reports with chronic bronchitis, developed 5 days dizziness, worsen with change of positions. denies fever,nausea,vomiting or diarrhea. pt has had a cold for several weeks. s/p left shoulder replaced june 2018.
[2018-10-20 12:09] VITALS: BP 122/79; PULSE 67; RESP 15; O2SAT 98
[2018-10-20 12:18] LABS: Add Manual Diff / Slide Review NO; Basophils Absolute Auto 100 /uL (0-100); Basophils Percent Auto 0.9 % (0-2); Eosinophils Absolute Auto 100 /uL (0-450); Eosinophils Percent Auto 0.9 % (2-4); Hematocrit 38.3 % (36-46); Hemoglobin 12.7 g/dL (12.0-16.0); Lymphocytes Absolute Auto 2300 /uL (1100-4500); Lymphocytes Percent Auto 30.7 % (25-40); Mean Corpuscular Hemoglobin 28.1 PG (26-34); Mean Corpuscular Volume 85.2 fL (80-100); Monocytes Absolute Auto 500 /uL (0-900); Monocytes Percent Auto 6.3 % (3-14); Neutrophils Absolute Auto 4600 /uL (1500-7000); Neutrophils Percent Auto 61.2 % (50-75); Platelet Count 259 X10^3/uL (150-400); Red Cell Distribution Width 14.3 % (11.6-14.8); White Blood Cell Count 7.5 X10^3/uL (4.5-11.0)
[2018-10-20 12:23] LABS: Alanine Aminotransferase 21 IU/L (9-52); Albumin 4.3 g/dL (3.5-5.0); Albumin Globulin Ratio 1.4 (1.0-2.8); Alkaline Phosphatase 90 U/L (38-126); Aspartate Aminotransferase 27 IU/L (14-36); BUN Creatinine Ratio 28.8 (6-22); Bilirubin Total 0.5 mg/dL (0.2-1.3); Blood Urea Nitrogen 23 mg/dL (7-17); Carbon Dioxide 28 mmol/L (22-32); Chloride 101 mmol/L (98-107); Estimated Glomerular Filt Rate > 60.0 mL/min (>60); Glucose 92 mg/dL (80-110); HEMOLYSIS 33 (0-50); Potassium 3.3 mmol/L (3.4-5.1); Sodium 138 mmol/L (137-145); Total Protein 7.3 g/dL (6.3-8.2)
[2018-10-20 12:39] LABS: Troponin I < 0.012 ng/mL (0.01-0.034)
[2018-10-20] MEDS: ONDANSETRON 4 MG/2 ML INJ IV (12:51)
[2018-10-20] MEDS: MECLIZINE HCL 12.5 MG TABLET 25 MG PO (12:51)
[2018-10-20] MEDS: SODIUM CHLORIDE 0.9% 1,000 ML 1000 ML IV (12:51)
[2018-10-20 13:08] VITALS: BP 138/63; PULSE 59; RESP 11; O2SAT 97
[2018-10-20 14:03] VITALS: BP 135/64; PULSE 66; RESP 23; O2SAT 97
--- NOTE | 2018-10-20 14:08 | PC.NURSE ---
julien rn , assisted student services counselor (Dwayne)for iv start and blood drawn.
--- NOTE | 2018-10-20 17:09 | ED_ITS ---
HPI - Dizziness General Chief Complaint: Dizziness Stated Complaint: light headed and dizzy Time Seen by Provider: 10/20/18 12:01 Source: patient Mode of arrival: ambulatory Limitations: no limitations History of Present Illness HPI Narrative: Patient is a 73-year-old female who presents with dizziness. She states that it is worse every time she turns her head or sits up. It has been ongoing for the last 4 days. She said she was started on an antibiotic for sinusitis however a sushi started at the dizziness is presented so she has stopped the antibiotic but her symptoms have continued. She feels nauseous at times. she denies any focal deficit it has no facial droop slurring of speech or unilateral weakness. His she feels only lightheaded when she is sitting still. She is able to open her eyes. But every time she tries to walk she must hold onto things. She denies any fever or chills. She has not passed out no heart palpitations or chest pain. Onset (ago): day(s) (4) Related Data Home Medications Medication Instructions Recorded Confirmed alprazolam 0.25 mg PO Q8H PRN 06/30/18 10/20/18 chlorthalidone 50 mg PO DAILY 06/30/18 10/20/18 citalopram 40 mg PO DAILY 06/30/18 10/20/18 metoprolol succinate 25 mg PO DAILY 06/30/18 10/20/18 omeprazole 20 mg PO DAILY 06/30/18 10/20/18 potassium chloride 2 tab PO DAILY 06/30/18 10/20/18 telmisartan 40 mg PO BID 06/30/18 10/20/18 amoxicillin-pot clavulanate 1 tab PO BID 10/20/18 10/20/18 cholecalciferol (vitamin D3) 5,000 unit PO DAILY 10/20/18 10/20/18 Previous Rx's Medication Instructions Recorded meclizine 25 mg PO TID PRN #20 tab 10/20/18 ondansetron 4 mg PO Q6-8H PRN #10 tab 10/20/18 Allergies Allergy/AdvReac Type Severity Reaction Status Date / Time adhesive Allergy Severe Takes my Verified 10/20/18 14:19 skin off latex [LATEX] Allergy Mild RASH Verified 10/20/18 14:19 erythromycin base AdvReac Severe SEVERE WHITTAKER, Verified 10/20/18 14:19 [ERYTHROMYCIN BASE] NAUSEA Sulfa (Sulfonamide AdvReac Severe SEVERE WHITTAKER, Verified 10/20/18 14:19 Antibiotics) NAUSEA [SULFA (SULFONAMIDE ANTIBIOTICS)] silver AdvReac Intermediate Turns my Verified 10/20/18 14:19 skin green Review of Systems Review of Systems ROS Unobtainable: All systems reviewed & are unremarkable except as noted in HPI and below Constitutional Denies chills, Denies fever(s), Denies frequent falls, Denies lethargy and Denies weakness ENT Ears, Nose, Mouth, and Throat: Reports vertigo and Reports dizziness Cardiovascular Denies chest pain, Denies syncope, Denies irregular heart rhythm, Reports lightheadedness, Denies palpitations, Denies dyspnea, Denies dyspnea on exertion and Denies orthopnea Respiratory Denies cough, Denies dyspnea, Denies dyspnea on exertion and Denies wheezing Gastrointestinal Gastrointestinal: Denies abdominal pain, Denies change in bowel habits, Denies diarrhea, Denies nausea and Denies vomiting Musculoskeletal Denies back pain, Denies muscle weakness, Denies numbness and Denies tingling Integumentary/Breasts Denies pruritus, Denies erythema, Denies rash and Denies wounds Neurologic Reports vertigo, Reports dizziness, Denies syncope, Denies frequent falls, Denies numbness, Denies tingling and Denies weakness Endocrine Denies palpitations Allergic/Immunologic Denies wheezing PFSH Medical History Achilles rupture, right (Acute) Anxiety (Acute) Bilateral hip pain (Acute) Bilateral shoulder pain (Acute) Depression (Acute) Dry skin (Acute) Easy bruisability (Acute) Edema (Acute) GERD (gastroesophageal reflux disease) (Acute) HTN (hypertension) (Acute) Hyperlipidemia (Acute) Neck pain (Acute) Numbness and tingling in both hands (Acute) BRETT on CPAP (Acute) Surgical History History of tonsillectomy and adenoidectomy (Acute) Hx of appendectomy (Acute) Hx of tubal ligation (Acute) Status post bilateral cataract extraction (Acute) Social History Smoking Status: Never smoker alcohol intake: never substance use type: does not use Exam Initial Vital Signs Initial Vital Signs: Vital Signs Temperature 98.8 F 10/20/18 11:15 Pulse Rate 69 10/20/18 11:15 Respiratory Rate 18 10/20/18 11:15 Blood Pressure 118/76 10/20/18 11:15 Pulse Oximetry 99 10/20/18 11:15 GENERAL: Well-appearing, well-nourished and in no acute distress. HEENT: Head atraumatic,EOMI, pupils reactive CARDIOVASCULAR: Regular rate and rhythm without murmurs, rubs or gallops. RESPIRATORY: Breath sounds equal bilaterally, no wheezes rales or rhonchi. ABDOMEN: Soft, nontender. Normoactive bowel sounds all 4 quadrants. No guarding or rebound. EXTREMITIES: Normal range of motion, no clubbing or edema. Neurovascularly intact NEUROLOGICAL: Alert and oriented x4.Normal gait and speech. Cranial nerves II through XII grossly intact. Good [id number], good [id number], strength equal bilaterally, no dysarthria or aphasia, sensation in tact to soft touch bilaterally, no visual changes, no facial droop SKIN: Warm, dry, no laceration, no petechiae, no rashes or lesions. Scores NIH Stroke Scale Level of Conciousness: Alert, keenly responsive Ask month/age: Answers both questions correctly. Open/close eyes, close hand: Performs both tasks correctly Best gaze horizontal: Normal Visual do: No visual loss Facial palsy: Normal symetrical movement Left arm drift: No drift for full 10 sec Right arm drift: No drift for full 10 sec Left leg drift: No drift for full 10 sec Right leg drift: No drift for full 10 sec Limb ataxia: Absent Sensory on face/arms/legs: Normal, no sensory loss Best language: No aphasia, normal Dysarthria: Normal Extinction or inattention: No abnormality Total NIH Stroke scale score: 0 Course Orders Ordered: ED Orders 10/20/18 11:34 EKG-12 Lead Routine 10/20/18 12:00 Complete Blood Count AUTO DIFF Stat Comprehensive Metabolic Panel Stat Troponin I Stat Discontinued Medications Sodium Chloride (Normal Saline 0.9%) 1,000 mls @ 1,000 mls/hr IV BOLUS ONE Stop: 10/20/18 13:26 Last Infusion: 10/20/18 14:20 Dose: 0 mls/hr Admin: 10/20/18 12:51 Dose: 1,000 mls/hr Meclizine HCl (Antivert) 25 mg PO NOW ONE Stop: 10/20/18 12:27 Last Admin: 10/20/18 12:51 Dose: 25 mg Ondansetron HCl (Zofran) 4 mg IV NOW ONE Stop: 10/20/18 12:27 Last Admin: 10/20/18 12:51 Dose: 4 mg Vital Signs - 8 hr 10/20/18 11:15 10/20/18 12:09 10/20/18 13:08 Temperature 98.8 F Pulse Rate 69 67 59 L Respiratory Rate 18 15 11 L Blood Pressure 118/76 Blood Pressure [Right Arm] 122/79 138/63 Pulse Oximetry 99 98 97 10/20/18 14:03 Temperature Pulse Rate 66 Respiratory Rate 23 Blood Pressure Blood Pressure [Right Arm] 135/64 Pulse Oximetry 97 MDM - Dizziness Lab Data Attestation: I reviewed the patient's lab results. Result diagrams: 10/20/18 12:00 10/20/18 12:00 Lab Results 10/20/18 10/20/18 Range/Units 12:00 12:00 WBC 7.5 (4.5-11.0) X10^3/uL RBC 4.50 (4.0-5.2) X10^6/uL Hgb 12.7 (12.0-16.0) g/dL Hct 38.3 (36-46) % MCV 85.2 (80-100) fL MCH 28.1 (26-34) PG MCHC 33.0 (30-36) % RDW 14.3 (11.6-14.8) % Plt Count 259 (150-400) X10^3/uL Neut % (Auto) 61.2 (50-75) % Lymph % (Auto) 30.7 (25-40) % [place] % (Auto) 6.3 (3-14) % Eos % (Auto) 0.9 L (2-4) % Baso % (Auto) 0.9 (0-2) % Neut # (Auto) 4600 (7120-7538) /uL Lymph # (Auto) 2300 (1898-8317) /uL [place] # (Auto) 500 (0-900) /uL Eos # (Auto) 100 (0-450) /uL Baso # (Auto) 100 (0-100) /uL Sodium 138 (137-145) mmol/L Potassium 3.3 L (3.4-5.1) mmol/L Chloride 101 (98-107) mmol/L Carbon Dioxide 28 (22-32) mmol/L BUN 23 H (7-17) mg/dL Creatinine 0.80 (0.52-1.04) mg/dL Estimated GFR > 60.0 (>60) mL/min BUN/Creatinine Ratio 28.8 H (6-22) Glucose 92 (80-110) mg/dL Calcium 10.0 (8.4-10.2) mg/dL Total Bilirubin 0.5 (0.2-1.3) mg/dL AST 27 (14-36) IU/L ALT 21 (9-52) IU/L Alkaline Phosphatase 90 (38-126) U/L Troponin I < 0.012 (0.01-0.034) ng/mL Total Protein 7.3 (6.3-8.2) g/dL Albumin 4.3 (3.5-5.0) g/dL Globulin 3.0 (1.7-4.1) g/dL Albumin/Globulin Ratio 1.4 (1.0-2.8) Urine Dip Bedside Urine Glucose Negative Bedside Urine Bilirubin - Negative Bedside Urine Ketone - Negative Urine Specific [place] 1.015 Bedside Urine Occult Blood +/- Bedside Urine pH 7.0 Bedside Urine Protein - Negative Bedside Urine Urobilinogen - Negative Bedside Urine Nitrite - Negative Bedside Urine Leukocytes - Negative Esterase ECG Data Attestation: I personally reviewed and interpreted this ECG as follows: Prior ECG tracings: available for review Interpretation: Normal sinus rhythm RR rate [address] changes no T-wave inversions that are unchanged. She does have T-wave inversions noted in V 3 through V5 but seen on previous EKG no acute ST elevation MDM Narrative Medical decision making narrative: Patient initially reported worsening feeling after meclizine she was quite nauseous she never vomited. However she did start to feel much better. She was ambulating sitting in a chair overall looked much better. [place] ready and able to go home. Discharge Plan Departure Patient Disposition: Home Clinical Impression: Benign paroxysmal positional vertigo Discharge Date/Time: 10/20/18 15:06 Interventions: ED Discharge Assessment Last Done: 10/20/18 15:07 Instructions: Benign Paroxysmal Positional Vertigo Activity Restrictions/Additional Instructions: *You have been diagnosed with benign paroxysmal positional vertigo *What to do: *Continue to take medications as directed--> FA[facility]ED TO [facility] Meclizine 25-50 mg every 8 hr if needed for dizziness Zofran 4 mg every 6-8 hours if needed for nausea or vomiting *Follow up with your primary care provider in 2-3 days *Return to ER if you should have worsening dizziness inability to tolerate fluids or any new, worsening or concerning symptoms Prescriptions: New meclizine 25 mg tablet 25 mg PO TID PRN (Reason: dizziness) Qty: 20 RF: 0 ondansetron 4 mg tablet,disintegrating 4 mg PO Q6-8H PRN (Reason: nausea and vomiting) Qty: 10 RF: 0 No Action amoxicillin-pot clavulanate 875-125 mg tablet 1 tab PO BID RF: 0 cholecalciferol (vitamin D3) 5,000 unit/mL Drops 5,000 unit PO DAILY RF: 0 potassium chloride 10 mEq Capsule, Extended Release 2 tab PO DAILY RF: 0 citalopram 40 mg Tablet 40 mg PO DAILY RF: 0 chlorthalidone 50 mg Tablet 50 mg PO DAILY RF: 0 alprazolam 0.25 mg Tablet 0.25 mg PO Q8H PRN (Reason: Anxiety) RF: 0 telmisartan 40 mg Tablet 40 mg PO BID RF: 0 omeprazole 20 mg Capsule,Delayed Release(Dr/Ec) 20 mg PO DAILY RF: 0 metoprolol succinate 25 mg Tablet Extended Release 24 Hr 25 mg PO DAILY RF: 0 Referrals: Santa Curtis ARNP [Primary Care Provider] -
== END 2018-10-20 15:06 | disposition home or self-care (01) ==
PROVIDERS: Emergency Provider Emergency Medicine; PCP Nurse Practitioner Family
DX: H81.10 Benign paroxysmal vertigo, unspecified ear (principal)
CPT/HCPCS: 36591; 80053; 81003; 84484; 85025; 93005; 96361; 96374; 99283; 99284; J2405

== ENCOUNTER → 2018-11-10 14:26 | Outpatient (CLI) | payer OTHER, SELFPAY ==
[2018-07-14 12:30] VITALS: BMI 33.0
--- NOTE | 2018-11-10 | DI.RAD.S_ITS ---
PROCEDURE: XR HIP W PEL IF DONE LT MIN 4V INDICATIONS: BILATERAL HIP PAIN TECHNIQUE: AP pelvis with lateral view(s) of the both hip(s). COMPARISON: None. FINDINGS: Bones: No fractures or dislocations. Pelvic ring appears intact. No suspicious bony lesions. There is mild/moderate symmetric hip joint degeneration and sacroiliac joint degeneration. Mild symmetric sclerosis of the iliac bone at the sacroiliac joints bilaterally is noted, consistent with osteitis condenses ilii. There is mild degenerative disc disease in the lower lumbar spine. Soft tissues: The visualized bowel gas pattern is normal. No suspicious soft tissue calcifications. IMPRESSION: 1. Osteitis ileitis condensans ilii. 2. 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 3. Mild degenerative disc disease in the lower lumbar spine. Dictated by: Jorge Vogel M.D. on 11/10/2018 at 16:10 Approved by: Jorge Vogel M.D. on 11/10/2018 at 16:13
== END ==
PROVIDERS: PCP Nurse Practitioner Family; Visit Provider Nurse Practitioner Family
DX: M25.551 Pain in right hip (principal); M25.552 Pain in left hip; M85.38 Osteitis condensans, other site; M16.0 Bilateral primary osteoarthritis of hip; M51.36 Other intervertebral disc degeneration, lumbar region; M47.898 Other spondylosis, sacral and sacrococcygeal region; G89.29 Other chronic pain
CPT/HCPCS: 73522

== ENCOUNTER → 2018-12-16 14:59 | Outpatient (CLI) | payer OTHER, SELFPAY ==
[2018-07-14 12:30] VITALS: BMI 33.0
--- NOTE | 2018-12-16 | DI.MG.S_ITS ---
BILATERAL DIGITAL SCREENING MAMMOGRAM 3D/2D WITH CAD: 12/16/2018 CLINICAL: Routine screening. Family history of breast cancer. Comparison is made to exams dated: 11/17/2016 mammogram, 10/08/2015 mammogram, and 10/05/2014 mammogram - [facility]. The tissue of both breasts is heterogeneously dense. This may lower the sensitivity of mammography. Current study was also evaluated with a Computer Aided Detection (CAD) system. There are benign calcifications in both breasts. No significant masses, calcifications, or other findings are seen in either breast. There has been no significant interval change. IMPRESSION: There is no mammographic evidence of malignancy. A 1 year screening mammogram is recommended. This exam was interpreted at Station ID: [id number]. NOTE: For mammograms, a report in lay terms will be sent to the patient. Approximately 15% of breast malignancies will not be visualized mammographically. In the management of a palpable breast mass, a negative mammogram must not discourage biopsy of a clinically suspicious lesion. Electronically Signed By: Ariel sosa/shai:12/16/2018 16:09:12 letter sent: Normal Exam ACR BI-RADS Category 2: Benign Finding(s) [id number]
== END ==
PROVIDERS: PCP Nurse Practitioner Family; Visit Provider Nurse Practitioner Family
DX: Z12.31 Encounter for screening mammogram for malignant neoplasm of breast (principal); Z80.3 Family history of malignant neoplasm of breast
CPT/HCPCS: 77063; 77067

== ENCOUNTER 2019-07-20 06:01 | Inpatient (IN) | payer OTHER, SELFPAY ==
[2019-06-14 09:44] VITALS: BMI 33.0
[2019-07-06 12:55] VITALS: BMI 32.5
[2019-07-20] VITALS (14 sets, daily range): BP systolic 87–132; BP diastolic 58–79; PULSE 56–95; RESP 10–24; TEMP 35.9–36.7; O2SAT 84–98; BMI 31.4
--- NOTE | 2019-07-20 | DI.RAD.S_ITS ---
PROCEDURE: XR SHOULDER RT MIN 2V INDICATIONS: POST OP TECHNIQUE: 2 views of the shoulder were acquired. COMPARISON: None. FINDINGS: Bones: Postsurgical changes compatible with right shoulder arthroplasty noted. No lucencies at the bone-hardware interface. Soft tissues: No suspicious soft tissue calcifications. IMPRESSION: Expected postsurgical change for right shoulder arthroplasty. Dictated by: Isabel Dang MD, PhD on 07/20/2019 at 11:22 Approved by: Isabel Dang MD, PhD on 07/20/2019 at 11:23
[2019-07-20] MEDS: LACTATED RINGERS 1,000 ML 42 ML IV (06:50)
[2019-07-20] MEDS: VANCOMYCIN 1,000 MG/200 ML PIGGYBACK 200 MG IV (07:26)
[2019-07-20] MEDS: ACETAMINOPHEN 325 MG TABLET 975 MG PO ×2 (07:27→20:20)
[2019-07-20] MEDS: PREGABALIN 75 MG CAPSULE PO (07:27)
--- NOTE | 2019-07-20 07:42 | PM.PREOP ---
Pre-operative Note Interval Note History & Physical reviewed/Exam performed by Physician: Yes Changes to H&P: No
--- NOTE | 2019-07-20 07:44 | SUR.PREOP ---
Spoke with Dr. Rubalcava about antibiotics ordered and reported information to pharmacy per request
[2019-07-20] MEDS: GENTAMICIN 200 MG in SODIUM CHLORIDE 0.9% 100 ML 105 ML IV (08:15)
--- NOTE | 2019-07-20 08:23 | SUR.PREOP ---
Block start time [0645] . Monitoring initiated and maintained throughout procedure. Oxygen 2/l nasal cannula placed on pt and and medications given by anesthesiologist. Patient remained stable throughout procedure, no adverse reactions noted. Block end time [0757]. Pt taken to OR in stable condition.
--- NOTE | 2019-07-20 08:38 | SUR.OPER ---
Beach chair with Maquet shoulder positioner on Skytron table. Lower body on padded OR bed. Head in foam padded head cradle, secured with straps. Non-operative arm secured <90 degrees abduction. Pillow under knees. Safety belt at thigh. Cloth tape over blanket over abdomen. Cloth tape over blanket over lower legs.
--- NOTE | 2019-07-20 08:48 | PM.PROC.1 ---
Procedures Date/Time Date of procedure: 07/20/19 Time of procedure: 07:45 General Procedure description: Ultrasound guided interscalene brachial plexus nerve block for post op pain control after right total shoulder arthroplasty by Dr. Rubalcava. Risk and benefits of procedure discussed with patient. ASA monitoring applied to patient. O2 given via nasal cannula. 1 mg Versed and 50 mcg fentanyl given for procedural sedation. Skin site was prepped with chlorhexidine and allowed to fully dry. Sterile gloves, mask, hat and probe cover were used to maintain sterility. 2% lidocaine and 30ga needle was used to make a small skin wheal at needle insertion site. Under ultrasound guidance, a 21ga 50mm Pajunk needle was directed into the interscalene groove (middle/anterior scalenes) near the brachial plexus. Patient reported no parasthesias. After negative aspiration, 20 mL 0.5% ropivicaine and 10mg dexamethasone were injected around brachial plexus. Patient tolerated procedure well.
[2019-07-20] MEDS: LIDOCAINE 1% W/EPI 20 ML INJ (08:50)
--- NOTE | 2019-07-20 10:16 | P.OP_ITS ---
Operative Date/Time/Diagnoses Date of procedure: 07/20/19 Time of procedure: 08:00 Pre-op diagnosis: End-stage arthritic changes to the right shoulder Post-op diagnosis: same Procedure & Clinicians Procedure: Right total shoulder arthroplasty Same procedure as scheduled: Yes Indications: End-stage arthritis to the right shoulder Surgeon: Yayo Rubalcava Staff Psychologist: Keshia Alvarenga Anesthesia Type: General and Peripheral nerve block Operative Notes Findings: Significant arthritic changes to the glenohumeral joint. Complete loss of cartilage to both sides of the joint. Large osteophytes involving the anterior, inferior and posterior aspect of the humeral head and neck. No sign of any rotator cuff tears. Loose bodies in the glenohumeral joint. Significant degenerative changes to the labrum. Closure Type: primary Specimen(s): none sent Applied: drain(s) and implant(s) (6 mm stem with a small glenoid and a 46 x 20 head Arthrex) Estimated Blood Loss (mL): 100 Blood products transfused: none Procedure in detail: On date of service, Patient was met in the holding area. The operative site was signed and witnessed by the OR staff. The surgeries once again discussed with the patient and any remaining questions they had were answered fully. Patient was taken back to the operating theater and placed on the operating table in a supine position. Great care was taken to ensure that all bony prominences were properly padded. Patient was then placed into the beach chair position. The head and neck were properly positioned and secured. A timeout was performed verifying patient's name, procedure, and the operative s ite. The upper extremity was then prepped and draped in the normal sterile fashion. Previously, the bony anatomy and incision were marked out as well as injected with Marcaine with epinephrine. A deltopectoral approach was performed. 10 blade was used to incise the skin and fascial tissue. A deep knife was used to continue sharp dissection until the cephalic vein was visualized. The cephalic vein was dissected free allowing us to expose the deltopectoral interval. This interval was then developed. A Mcpherson elevator was used to free up the deltoid of any scarring both superficially as well as deeply. The vein and the deltoid were taken laterally while the pectoralis was taken medially. This gave us good visualization of the strap muscles. The clavipectoral fascia was removed and the strap muscles were then retracted medially with the pectoralis. This gave us stabilization of the subscapularis. The circumflex vessels were ligated and the subscapularis was sharply excised off the lesser tuberosity and then tagged. Once the subscapularis was released we're able to dislocate the shoulder. Patient had end-stage arthritic changes to the humeral head as well as the glenoid with large osteophytes anterior inferiorly as well as posteriorly. A Ronger was then used to remove the osteophytes. Next, cutting guide was placed and a saw was used to remove the humeral head. Once the head was removed it was templated. A starting awl was then used to find the canal and then the humerus was reamed and broached. Trial stem was placed and a variety of heads were trialed. A protector placed for the osteotomy was then placed and and we turned our attention back to the subscapularis as well as the glenoid. The subscapularis was freed up and a 360? fashion. The degenerative anterior and inferior capsular tissue was removed. This was followed by removing the degenerative labral tissue from around the glenoid as well as the biceps insertion. This gave us good visualization of the glenoid. Glenoid trials were used until we found the appropriate fit and curvature. Next the center hole was drilled followed by reaming of the glenoid. The wound was copiously irrigated after reaming. Next the pegs were drilled and a trial glenoid was impacted into place. Once we were satisfied with the preparation of the glenoid, the final component was cemented into place. This was followed by impaction. We Return to our attention back to the humerus. The protector plate was removed and heads were trialed once again and so we found the appropriate fit. The trials were removed and bone tunnels were made into the humeral neck. #2 FiberWire were passed through the bone tunnels for eventual subscapularis repair. The final stem and head were impacted into place and the shoulder was reduced. It was taken through range of motion and was felt to be stable in both posterior translation as well as external and internal rotation with abduction. The subscapularis was repaired back to the lesser tuberosity through the bone tunnels. This was then reinforced with soft tissue repair. Part of the rotator interval was then closed. A drain was placed and the rest of the wound was closed in a layered fashion. The shoulder was then cleaned dried and dressed and the patient was taken to the PACU in stable condition. Patient will follow our postoperative protocol for total shoulder arthroplasty. Complications: none Post-operative Condition: stable Disposition: PACU Plan for aftercare: Patient will follow our postoperative protocol for total shoulder arthroplasty. Patient is planning on going to a [facility] and will be in the hospital for the required 3 days.
--- NOTE | 2019-07-20 10:54 | SUR.PHASEI ---
Report called to Radha Membreno.
--- NOTE | 2019-07-20 11:30 | SUR.PHASEI ---
Pt transferred on O2 to the floor with belongings bag, cane and CPAP. VS stable. Right shoulder dressing CDI, Hemovac patent. Sling in place. Report to Radha
[2019-07-20] MEDS: LACTATED RINGERS 1,000 ML 125 ML IV ×2 (12:00→22:29)
--- NOTE | 2019-07-20 13:05 | CM.DANOTE ---
Addendum entered by Ricarda Gr R.N. 07/20/19 14:42: Spoke to patient and let her know that there is a chance that [employer] will not authorize skilled, for this was elective surgery. Patient stated, she had called [facility], and they mentioned that they cover 20 days of retirement. Let her know that this would depend upon review of her case with [facility]. Asked her is she would be willing to pay daily rate for skilled if needed, and she stated,, no, she will just go home if necessary. Let her know that care management would still submit therapy notes for review. Original Note: DCP: Case received, EMR reviewed and met with patient. , Gage, also at bedside. Introduced self and role. Was able to obtain baseline health and activity information from patient. DCP assessment/template completed with current information available. Patient is a 74 year old female who admitted early this morning to the care of the orthopedic team. PCP: Dr. Curtis. Payer: confirmed: [employer] [facility]. Patient came to the hospital for a surgical procedure. She had left total shoulder arthroplasty. Patient has history of osteoarthritis. Note from orthopedic physician state that patient will need retirement. Met with patient in her room. Just had surgery. Alert and oriented. Lives in [place] with her , Gage. She mentioned that she had her other shoulder done before. Patient stated, she thinks that skilled may be beneficial for her, and she has friends in this area, so she is hoping for [facility]. Gave her Medicare choice list. Patient has [employer], so will need to get authorization, and she has not yet worked with .. When P.T. notes are received, will send to [employer] when notes are available. Verified that Seymour is classification case manager, but Paige is the classification case manager for today. She stated, It is not likely that it will be approved, unless something went wrong with the surgery. Stated, to go ahead and send over P.T. notes, and they will have to 2nd level review. P: DCP to continue to follow. Will fax P.T. notes over to [employer]. [facility] has referral. Other option is for patient to pay daily at [facility], but unclear if patient will be willing to do this. Will attempt [facility] referral. Ricarda Gr RN/[employer]
--- NOTE | 2019-07-20 15:23 | PC.NURSE ---
Ortho: Received from pacu, no pain, had a block, hand is numb and feels like pins and needles. brisk cap refill. Dressing intact and hemovac compressed and drains red fluid. Has been up to br to void, sba of 1 for safety. Was a little wobbly feeling when she got back. Tolerated diet w/out problems. Cont w/poc.
--- NOTE | 2019-07-20 18:53 | PT.IIE ---
Addendum entered and electronically signed by Kelly Alonzo PT 07/20/19 18:54: This is to certify that I have reviewed this documentation and is involved in this pt's care. Original Note: Current Diagnoses Primary osteoarthritis, right shoulder (07/20/19) Surgery Performed Operation Date: 07/20/19 07:45 Actual Procedures p Total Shoulder Arthroplasty(Right) - Yayo Rubalcava MD Surgical History (Last Updated 07/06/19 @ 13:04 by Monique Bran RN) History of arthroplasty of left shoulder (Acute 07/14/18) History of tonsillectomy and adenoidectomy (Acute) Hx of appendectomy (Acute) Hx of tubal ligation (Acute) Status post bilateral cataract extraction (Acute) Medical History (Last Updated 06/30/18 @ 11:31 by Monique Bran RN) Achilles rupture, right (Acute) Anxiety (Acute) Bilateral hip pain (Acute) Bilateral shoulder pain (Acute) Depression (Acute) Dry skin (Acute) Easy bruisability (Acute) Edema (Acute) GERD (gastroesophageal reflux disease) (Acute) HTN (hypertension) (Acute) Hyperlipidemia (Acute) Neck pain (Acute) Numbness and tingling in both hands (Acute) BRETT on CPAP (Acute) Physical Therapy Inpatient Evaluation/Re-Eval M1 PT/OT-IP Prior Functional Status Start: 07/20/19 17:27 Freq: NEEDED Status: Active Protocol: Document 07/20/19 16:18 MT (Rec: 07/20/19 18:22 MT [id number]) Medical Review Prior Functional Status Medical History Reviewed Yes Diet/Fluid Consistency Regular Communication Pt able to fully communicate Mobility and Gait Pt reports that her helped her with sitting up and getting in and out of bed d/t R shoulder pain before her surgery. Pt reports that she has been sleeping in a recliner at home for that reason. Pt stated that she had 2 SPC's but hardly used them in the house - she only used it for ambulation community distances such as shopping. Activities of Daily Living and IADL's Prior to her surgery, her helped her with many of her ADL's including dressing and bathing, becuase she was unable to d/t pain in her R shoulder. She had her hair cut short, because she was unable to reach her hair with both her arms at one point. She is able to now reach her hair with her left arm, but remained unable to with her right arm. She reported that she could not do anything that rrequired her to lift her R arm above shoulder level. Prior Functional Level (Other details) Pt reported that she lived in a house in [place] with her , who helped her with her mobility and ADL's. She seemed apprehensive about whether her would be able to help her with her mobility if she were to discharge home Social History Household Members spouse Living Arrangements House Number of Floors (Floors) One Floor Number of Stairs To Enter/Railing? 3 steps to enter. Pt has a pole on the right side of the stairs that she uses to get up the stairs Home Environment Standard Height Toilet,Tub/ Shower Home Equipment Straight Cane,Shower Seat without Backrest Employment Status Retired M2 PT-IP Current Condition Start: 07/20/19 17:27 Freq: NEEDED Status: Active Protocol: Document 07/20/19 16:18 MT (Rec: 07/20/19 18:22 [id number] Therapy Current Condition Current Condition Evaluation Date 07/20/19 Treatment Diagnosis reduced mobility s/p R shoulder arthroplasty Onset Date 07/20/19 Precautions Shoulder Precautions Sling,PROM,Internal Rotation to Body,No External Rotation, No Abduction,Forward Flexion to 90 degrees,Pendulums Weight Bearing Status Weight Bearing Status Non-Weight Bearing Allowed Weight Bearing Amount (enter % NWB on R UE or #) (%) M3 PT-IP Subjective Start: 07/20/19 17:27 Freq: NEEDED Status: Active Protocol: Document 07/20/19 16:18 MT (Rec: 07/20/19 18:22 [place] [id number]) Subjective Physical Therapy Visit Type Type Initial Evaluation Visit Start Time 16:18 Visit Stop Time 17:09 Total Visit Minutes 49 Number of EXTERNAL GRINDER TENDER Visits 0 Physical Therapy Visit Comments Patient Comments Pt was agreeable to participate in physical therapy evaluation Therapy Pain Assessment Pain When Pain Assessed At Rest Pain Present Pain Present Denied Pain M4 PT-IP Mobility and Gait Start: 07/20/19 17:27 Freq: NEEDED Status: Active Protocol: Document 07/20/19 16:18 MT (Rec: 07/20/19 18:22 [place] [id number]) PT-Bed Mobility Assessment Supine to Sit Supine to Sit Moderate Assistance,1 Person Assistance,Head of Bed Elevated Scooting Scooting to Edge of Bed Standby Assistance PT-Transfer Assessment Sit to and From Stand Sit to and from Stand Contact Guard Assistance,1 Person Assistance,Use of Upper Extremities Equipment Transfer Assistive Device Straight Cane Orthotic/Prosthetic Devices or Brace: No Transfers Transfer Destination Chair Transfer Technique Stand Step Pivot Transfer Ability Level of Assist Minimal Assistance,1 Person Assistance Comments Mobility Comments Pt utilized the head of bed elevation, but was able to sit at the EOB from supine with ModA and moderate cueing for not moving her R shoulder. Pt 's sling was observed to be ill-fitting and was replaced with a bigger sling and she was properly positioned in it. Pt was educated on her WB status and precautions for her R shoulder. Pt had brought a spare SPC from home, but upon examination from PT, the cane was unstable and one from the facility was used. Pt has another one at home, which should be assessed for safety. Pt required 2 attempts to perform sit to stand transfer. Pt required Parth for her stand pivot transfer and use of a SPC. She was slow to stand up, and she said she paused because of her hip. Gait Assessment Gait Gait Assistance Required: Minimum Assistance,1 Person Assist Distance (Feet) 3 Able to Maintain Weight Bearing Status Yes During Gait Assistive Devices Assistive Device Gait Belt,Straight Cane Orthotic/Prosthetic Devices or Brace: Yes Gait Deviations General Gait Pattern Antalgic,Decreased Stride Length,Decreased Feet Clearance,Wide Based Gait Factors Limiting Gait Function Factors Limiting Gait Function Decreased Activity Tolerance, Decreased Strength,Pain,Poor Balance Comments Gait Comments Pt took steps and walked 3-4 feet before sitting down during her transfer. Parth with SPC. PT-Balance Assessment Sitting Balance and Reactions Static Sitting Balance Ability Normal Dynamic Sitting Balance Ability Good Standing Balance and Reactions Static Standing Balance Ability Fair Dynamic Standing Balance Ability Poor Device Used SPC M5 PT-IP Objective Assessments Start: 07/20/19 17:27 Freq: NEEDED Status: Active Protocol: Document 07/20/19 16:18 MT (Rec: 07/20/19 18:22 MT [id number]) Orientation Orientation/Cognition Level of Alertness Alert Orientation Name,Place,Situation Language Function Ability No Deficits Noted Safety Awareness Understands Safety Issues Memory Description No Deficits Noted Gross Range of Motion Lower Extremity ROM Assessment Within Functional Limits Strength Lower Extremity Strength Assessment Bilaterally Impaired Hip 4/5 B hip flexion Knee 4/5 B knee ext and flex Ankle 4+/5 DF and PF B Comments Strength Comments Pt demonstrated B LE strength of 4/5 Sensation Assessment Sensation Gross Sensation Right UE Impaired Light Touch Absent Sensation Description Numbness,Heaviness Comments Sensation Comments Pt reports that the tingling and pins and needles sensation that she was reporting before had gone away. She was still experiencing numbness in her thumb and 1st digit Muscle Tone Muscle Tone WNL Yes M6 PT-IP Treatment Start: 07/20/19 17:27 Freq: NEEDED Status: Active Protocol: Document 07/20/19 16:18 MT (Rec: 07/20/19 18:22 [place] [id number]) Physical Therapy Treatment Education Education Provided Precautions,Weight Bearing Status,Post-Op Packet,Safety Equipment Issued Equipment Type and Company Pt was provided with a better fitting sling M7 PT-IP Assessment and Plan Start: 07/20/19 17:27 Freq: NEEDED Status: Active Protocol: Document 07/20/19 16:18 MT (Rec: 07/20/19 18:22 [place] [id number]) PT Summary Assessment and Plan Potential Rehabilitation Potential Good Status of Condition at Evaluation Evolving Summary Impairments Pain,ROM,Strength,Balance,Bed Mobility,Transfers,Gait, Activity Tolerance Assessment Summary Pt was able to perform supine to sit bed mobility with HOB elevation and ModA, and stand pivot transfer Parth using SPC. Pt was educated on her precautions, but required frequent cueing to not engage her R shoulder in order to maintain her post-op precautions. Pt is unsteady with her balance and gait putting her at a fall risk, and requires assistance with all of her mobility and ADL's. Pt needs 24/7 assist at this time and will require SNF rehab to improve independence prior to d/c home. Additionally, when asked, pt seemed unsure whether her would be able to provide the assistance that she would require when she discharges, furthering the need for SNF d/c. Goals Bed Mobility Goal Contact Guard Assistance Transfer Goal Standby Assistance,Cane Gait Goal Standby Assistance,Cane Gait Distance 200 Other Goals ascend/descend 3 steps with R HR SBA Days to Meet Goals 5 Frequency of Treatment Frequency Of Treatment Twice a Day Treatment Plan Physical Therapy Treatment Plan Bed Mobility Training,Transfer Training,Gait Training, Therapeutic Exercise,Post Op Education,Discharge Planning, Hot or Cold Pack Other Recommendations and Next Treatment if appropriate, caregiver Focus training with hasband Recommendations To Nursing Amount of Assist Needed 1 Person Assist Discharge Recommendations PT Discharge Recommendations SNF Rehab Equipment Needed for Home Before The SPC that pt brought in was Discharge not stable when tested by PT. Pt reports she has another SPC at home, but that one shoulde be tested as well. If neither cane is sufficient pt will require a SPC.
[2019-07-20] MEDS: MAGNESIUM HYDROXIDE 30 ML UDC PO (20:19)
[2019-07-20] MEDS: TELMISARTAN 40 MG TABLET PO (20:19)
[2019-07-20] MEDS: DOCUSATE 100 MG CAPSULE PO (20:19)
[2019-07-20] MEDS: OXYCODONE IR 5 MG TABLET PO (20:19)
--- NOTE | 2019-07-20 23:51 | PC.NURSE ---
Report received at 1500, care assumed. Patient A&Ox3. Voiding, getting OOB, ambulating with cane. No c/o pain. Numbness in right thumb and right upper arm. Ice on shoulder, shoulder in sling. Weaned off nasal cannula during evening shift. Monitored oxygen sat with activity, maintained sats appropriately. Pt's own CPAP at night.
[2019-07-21] MEDS: OXYCODONE IR 5 MG TABLET PO ×4 (00:18→09:45)
--- NOTE | 2019-07-21 01:07 | PC.NURSE ---
Addendum entered by Benita Calderon R.N. 07/21/19 06:44: Had pain medication at 0316 for 8/10 pain and now states pain is again 8/10 pushing 9 in right UE both upper arm, hand and wrist. CMS remains intact. Medicated with Oxycodone and ice applied. Original Note: 0030 Patient is alert and oriented. Breath sounds CTA with RA sat of 92% at shift changed. HRR. Denies nausea. BT hypoactive but states she is passing flatus. Has voided since surgery and denies dysuria, frequency or urgency. Is able to move self in bed and gets up reportedly with cane and 1 assist. Does have chronic hip/knee issues so states she is weak in LE. Dressing to right shoulder is CDI. Having 5/10 pain so medicated with Oxycodone and ice pack applied. Noted that hemovac tubing was disconnected so reconnected and hemovac compressed again. CMS + in right arm; arm is in sling. Wearing bilateral SCD's. Fall risk score is moderate; bed alarm is activated. Wearing home CPAP
[2019-07-21 03:00] VITALS: BP 106/63; PULSE 79; RESP 18; TEMP 36.6; O2SAT 91
[2019-07-21] MEDS: PANTOPRAZOLE 20 MG TABLET PO (05:26)
[2019-07-21 05:55] LABS: Hematocrit 27.7 % (36-46); Hemoglobin 9.5 g/dL (12.0-16.0); Mean Corpuscular HGB Conc 34.3 % (30-36); Mean Corpuscular Hemoglobin 29.5 PG (26-34); Mean Corpuscular Volume 85.9 fL (80-100); Platelet Count 186 X10^3/uL (150-400); Red Blood Cell Count 3.23 X10^6/uL (4.0-5.2); Red Cell Distribution Width 13.9 % (11.6-14.8); White Blood Cell Count 12.5 X10^3/uL (4.5-11.0)
[2019-07-21] MEDS: LACTATED RINGERS 1,000 ML 125 ML IV (06:39)
[2019-07-21] MEDS: POTASSIUM CHLORIDE 10 MEQ TAB 20 MEQ PO (08:40)
[2019-07-21] MEDS: METOPROLOL ER 25 MG TABLET PO (08:40)
[2019-07-21] MEDS: TELMISARTAN 40 MG TABLET PO (08:41)
[2019-07-21] MEDS: CITALOPRAM 20 MG TABLET 40 MG PO (08:41)
[2019-07-21] MEDS: CHLORTHALIDONE 25 MG TABLET 50 MG PO (08:41)
[2019-07-21] MEDS: DOCUSATE 100 MG CAPSULE PO (08:41)
--- NOTE | 2019-07-21 09:15 | PT.IPTN ---
Current Diagnoses Primary osteoarthritis, right shoulder (07/20/19) Surgery Performed Operation Date: 07/20/19 07:45 Actual Procedures p Total Shoulder Arthroplasty(Right) - Yayo Rubalcava MD Physical Therapy Treatment Note M2 PT-IP Current Condition Start: 07/20/19 17:27 Freq: NEEDED Status: Active Protocol: Document 07/20/19 16:18 MT (Rec: 07/20/19 18:22 MT [id number]) Physical Therapy Current Condition Current Condition Evaluation Date 07/20/19 Treatment Diagnosis reduced mobility s/p R shoulder arthroplasty Onset Date 07/20/19 Precautions Shoulder Precautions Sling,PROM,Internal Rotation to Body,No External Rotation, No Abduction,Forward Flexion to 90 degrees,Pendulums Weight Bearing Status Weight Bearing Status Non-Weight Bearing Allowed Weight Bearing Amount (enter % NWB on R UE or #) (%) M3 PT-IP Subjective Start: 07/20/19 17:27 Freq: NEEDED Status: Active Protocol: Document 07/21/19 09:15 AB (Rec: 07/21/19 12:32 AB [id number]) Subjective Physical Therapy Visit Type Type Treatment Note Visit Start Time 09:15 Visit Stop Time 10:11 Total Visit Minutes 56 Number of DOOR ATTENDANT Visits 0 Physical Therapy Visit Comments Patient Comments pt agreeable to do PT Therapy Pain Assessment Pain When Pain Assessed At Rest Pain Present Pain Present Pain Reported Location right UE Intensity 8 Pain Management Techniques Apply Cold,Re-positioning, Timing of Activity with Medications M4 PT-IP Mobility and Gait Start: 07/20/19 17:27 Freq: NEEDED Status: Active Protocol: Document 07/21/19 09:15 AB (Rec: 07/21/19 12:32 AB [id number]) PT-Bed Mobility Assessment Supine to Sit Supine to Sit Standby Assistance Sit to Supine Sit to Supine Standby Assistance Scooting Scooting to Edge of Bed Standby Assistance PT-Transfer Assessment Sit to and From Stand Sit to and from Stand Contact Guard Assistance,1 Person Assistance,Use of Upper Extremities Equipment Transfer Assistive Device Gait Belt,Straight Cane Orthotic/Prosthetic Devices or Brace: Yes Transfers Transfer Destination Toilet Transfer Technique pt ambulated using SPC Transfer Ability Level of Assist Contact Guard Assistance Comments Mobility Comments pt completed supine to sit SBA . pt sat on EOB SBA and completed sit to stand CGA. ambulated to the toilet using SPC CGA. pt was able to complete toileting SBA. ambulated towards the sink CGA using SPC and was able to maintain standing SBA leaning on the counter while completing handwashing. pt ambulated to EOB. spouse arrived. caregiver training conducted. educated on sling management. spouse was able to don sling on pt. educated spouse on how to use safety belt and to assist pt with ambulation and stairs. spouse ambulated pt in the hallway ~ 75 ft CGA. pt also completed stair training with spouse assisting pt. pt requested to go back to bed at end of session and completed sit to supine SBA. postiioned pt in bed. call light and table placed within reach. Gait Assessment Gait Gait Assistance Required: Contact Guard Assist Distance (Feet) 75 Able to Maintain Weight Bearing Status Yes During Gait Assistive Devices Assistive Device Gait Belt,Straight Cane Orthotic/Prosthetic Devices or Brace: Yes Gait Deviations General Gait Pattern Antalgic,Decreased Stride Length,Decreased Feet Clearance Factors Limiting Gait Function Factors Limiting Gait Function Decreased Strength,Limited Range of Motion,Pain,Poor Balance Stair Climbing Assessment Evaluation Level of Assist On Stairs Minimal Assistance Devices Stair Climbing Assistive Devices Straight Cane,Left Railing Technique/Endurance Stair Climbing Direction Ascend and Descend Stair Climbing Technique Step to Step Number of Steps Climbed 3 Stair Climbing Set # Repetitions (reps) 1 Comments Stair Climbing Comments pt completed ascending steps using SPC and spouse assisting min A, completed descending steps using L rail min A. spouse assisted pt safely. M5 PT-IP Objective Assessments Start: 07/20/19 17:27 Freq: NEEDED Status: Active Protocol: Document 07/20/19 16:18 MT (Rec: 07/20/19 18:22 MT [id number]) Orientation Orientation/Cognition Level of Alertness Alert Orientation Name,Place,Situation Language Function Ability No Deficits Noted Safety Awareness Understands Safety Issues Memory Description No Deficits Noted Gross Range of Motion Lower Extremity ROM Assessment Within Functional Limits Strength Lower Extremity Strength Assessment Bilaterally Impaired Hip 4/5 B hip flexion Knee 4/5 B knee ext and flex Ankle 4+/5 DF and PF B Comments Strength Comments Pt demonstrated B LE strength of 4/5 Sensation Assessment Sensation Gross Sensation Right UE Impaired Light Touch Absent Sensation Description Numbness,Heaviness Comments Sensation Comments Pt reports that the tingling and pins and needles sensation that she was reporting before had gone away. She was still experiencing numbness in her thumb and 1st digit Muscle Tone Muscle Tone WNL Yes M6 PT-IP Treatment Start: 07/20/19 17:27 Freq: NEEDED Status: Active Protocol: Document 07/21/19 09:15 AB (Rec: 07/21/19 12:32 [id number]) Physical Therapy Treatment Education Education Provided Precautions,Safety Brace Education [place],Patient, Caregiver Other Treatments Other Treatment Performed educated pt/spouse regarding sling management; shoulder precautions and pendulum exercise M7 PT-IP Assessment and Plan Start: 07/20/19 17:27 Freq: NEEDED Status: Active Protocol: Document 07/21/19 09:15 AB (Rec: 07/21/19 12:32 [id number]) PT Summary Assessment and Plan Potential Rehabilitation Potential Good Summary Impairments Pain,ROM,Strength,Balance, Coordination,Sensation,Bed Mobility,Transfers,Gait, Activity Tolerance Assessment Summary caregiver training conducted and spouse was able to assist pt safely. pt plans to go home today. Goals Bed Mobility Goal Contact Guard Assistance Transfer Goal Standby Assistance,Cane Gait Goal Standby Assistance,Cane Gait Distance 200 Other Goals ascend/descend 3 steps with R HR SBA Days to Meet Goals 5 Frequency of Treatment Frequency Of Treatment Twice a Day Treatment Plan Physical Therapy Treatment Plan Bed Mobility Training,Transfer Training,Gait Training, Therapeutic Exercise,Post Op Education,Discharge Planning, Hot or Cold Pack Recommendations To Nursing Amount of Assist Needed 1 Person Assist Discharge Recommendations PT Discharge Recommendations Home with Assistance, Outpatient PT
[2019-07-21 09:33] VITALS: BP 117/60; PULSE 83; RESP 16; TEMP 36.6; O2SAT 95
[2019-07-21] MEDS: ACETAMINOPHEN 325 MG TABLET 975 MG PO (09:44)
[2019-07-21] MEDS: ALPRAZolam 0.25 MG TABLET PO (09:44)
--- NOTE | 2019-07-21 10:57 | CM.DPC ---
Addendum entered by Cande Mcpherson LPN 07/21/19 11:22: [facility] is updated re d/c dispo change. Original Note: DCP: continued: case received, EMR reviewed. Discussed in Team Rounds. PT did see pt last evening for first evaluation and recommendation is for a snf stay. Was noted that Kelly Chowdary did discuss the snf option with pt yesterday and the issues around a planned surgery and the [facility] snf auth process. OT order is obtained now as this will be needed as part of the [facility] auth consideration. In followup to this plan did leave a vm for pt's [place] CM to discuss the case and planned to follow up with clinical notes. Met then with pt and her . Introduced self and role and discussed the d/c plan thus far. Pt stated that she very much appreciated Kelly's assist yesterday. She said that she has been working on her plan and that she already knows that [place] will not approve a snf stay. Offered to send the clinical notes anyway for their final review but she said she plans to go home with her and that she has many supportive friends lined up to assist her with supportive needs. Pt has had the other shoulder done and says she feels very comfortable going home. She also noted that she did received an updated from [place] on changes for the new year and I have an appt already set up to go over the options as we plan to change our insurance provider during open enrollment. P: at this point: home as above when stable for same. Will be following prn.
[2019-07-21 11:42] VITALS: PULSE 63; O2SAT 97
[2019-07-21] MEDS: OXYCODONE IR 10 MG TABLET PO (12:41)
--- NOTE | 2019-07-21 13:16 | P.DS_ITS ---
History of Present Illness History of Present Illness Date Patient Seen: 07/21/19 Time Patient Seen: 13:16 Chief complaint: [id number] Narrative: End-stage arthritis to the right shoulder Post op day 1 s/p right total shoulder arthroplasty with Dr. Rubalcava. No acute events overnight. Patient mobilizing well with PT. Voiding without difficulty or assistance. Pain well controlled with oxycodone. Patient denies fever, chills, nausea, vomiting, chest pain, shortness of breath. Discharge Providers Provider Date of admission: 07/20/19 06:01 Discharge Date: 07/21/19 Primary care physician: FAVIAN Richards Consults: 07/20/19 07:19 Consult to Respiratory Therapy Evaluate & Treat Comment: Physician Instructions: Evaluate and treat 07/20/19 10:05 Consult to Discharge Planning Routine Comment: Patient plans on going to a [facility] facili Consult to Physical Therapy Evaluate & Treat Comment: Physician Instructions: Evaluate and Treat Consult to Respiratory Therapy Evaluate & Treat Comment: Physician Instructions: Evaluate and treat 07/20/19 10:20 Consult to INSTRUCTIONAL DESIGNER - Automobile Assembly Supervisor Routine Comment: Pt will need SNF placement 07/21/19 10:35 Consult to Occupational Therapy Evaluate & Treat Comment: OT needed as part of [facility] snf auth consideration Physician Instructions: Evaluate and treat Discharge provider: Trisha Moe PA-C Summary Hospital Course Discharge Diagnosis: s/p right total shoulder arthroplasty Hospital Course: Patient admitted to hospital s/p right total shoulder art hroplasty with Dr. Rubalcava. Hospital course unremarkable. POD 1 patient was ready for discharge home with assistance from spouse. Patient sent home with prescription for oxycodone, tylenol and aspirin. Patient eating and voiding without difficulty or assistance. Patient mobilizing well with PT prior to discharge. Dressing was CDI. ASA 81 mg bid for DVT prophylaxis. Exam Vital Signs (past 8 hours): - 07/21/19 09:33 Temperature 97.9 F Pulse Rate 83 Respiratory Rate 16 Blood Pressure 117/60 Pulse Oximetry 95 Oxygen Delivery Method Room Air Oxygen Flow Rate 0 Narrative Exam Narrative: 74 year old female is sitting upright comfortably in bed, in no apparent distress. Right arm in sling, dressing CDI. Sensory function grossly intact to light touch (radial, ulnar, median, muscular cutaneous, axillary) in UE bl. Able to extend and abduct right thumb. Able to fire biceps, deltoids bl. Radial pulse 2+ b/l. Capillary refill <2seconds UE b/l. Objective Labs Result Diagrams: 07/21/19 05:30 Labs: Laboratory Results - last 24 hr 07/21/19 05:30 WBC 12.5 H RBC 3.23 L Hgb 9.5 L Hct 27.7 L MCV 85.9 MCH 29.5 MCHC 34.3 RDW 13.9 Plt Count 186 Discharge Plan Discharge Plan Patient Disposition: Home Discharge Med Rec/Prescriptions Prescriptions: New oxycodone 10 mg tablet 10 mg PO Q4-6H PRN (Reason: pain) Qty: 40 RF: 0 aspirin 81 mg tablet,delayed release (DR/EC) 81 mg PO BID Qty: 60 RF: 0 acetaminophen [Tylenol Extra Strength] 500 mg tablet 500 mg PO Q4H PRN (Reason: pain (scale score 4-6)) Qty: 60 RF: 0 Continued cholecalciferol (vitamin D3) 5,000 unit/mL Drops 5,000 unit PO QWEEK RF: 0 potassium chloride 10 mEq Capsule, Extended Release 2 tab PO DAILY RF: 0 citalopram 40 mg Tablet 40 mg PO DAILY RF: 0 chlorthalidone 50 mg Tablet 50 mg PO DAILY RF: 0 alprazolam 0.25 mg Tablet 0.25 mg PO Q8H PRN (Reason: Anxiety) RF: 0 telmisartan 40 mg Tablet 40 mg PO BID RF: 0 omeprazole 20 mg Capsule,Delayed Release(Dr/Ec) 20 mg PO DAILY RF: 0 metoprolol succinate 25 mg Tablet Extended Release 24 Hr 25 mg PO DAILY RF: 0 Discontinued acetaminophen [Tylenol Arthritis Pain] 650 mg Tablet Extended Release 650 mg PO Q12H PRN (Reason: Pain) RF: 0 Follow up/Referrals: Santa Curtis ARNP [Primary Care Provider] - Yayo Rubalcava MD [Physician] - Provider Discharge Instructions Diet: Regular Activity: follow total shoulder arthroplasty precautions. Cold/Heat Therapy: continue cold/heat therapy Skin/Wound/Dressing Care Report to your healthcare provider any signs of infection, such as:: chills, fever, increased pain, unusual drainage and unusual redness Dressing: keep aquacel dressing dry. can shower, no soaking (e.g. bath) contact office if saturated Visit Report/Discharge Packet Instructions: DI for Constipation, How to Prevent Falls, DI for Shoulder Replacement Stand Alone Forms: Surgery Discharge Discharge Data Primary Care Provider: Santa Curtis Discharges patient from system. Discharge Date/Time: 07/21/19 14:20
--- NOTE | 2019-07-21 14:31 | PC.NURSE ---
Ortho: Pt feels ready to d/c home. Has been seen by OT/PT and given their instructions. New sling is working well for patient. Po pain meds increased to 10mg and this has been more effective for pain control. Tolerates diet w/out problems. Vds w/out diff. Discussed wound care. Given rx, reviewed d/c instruction sheets. Hemovac out and gauze dressing applied. Pt instructed to remove in 48 hours. Spouse present at time of teaching. PA-C here earlier and given instructions. He was also notified of O2 sats at 90-91%. Okay to d/c, would not qualify for home O2 anyways. Questions answered. D/c home via auto w/spouse.
== END 2019-07-21 14:20 | disposition home or self-care (01) | DRG 483 ==
PROVIDERS: Admitting Provider Orthopaedic Surgery; PCP Nurse Practitioner Family; Visit Provider Orthopaedic Surgery
PROC: 0RQJ0ZZ Repair Right Shoulder Joint, Open Approach (ICD-10-PCS; CPT 23472; principal; 2019-07-20 07:45)
DX: M19.011 Primary osteoarthritis, right shoulder (principal); G47.30 Sleep apnea, unspecified; I10 Essential (primary) hypertension; F32.9 Major depressive disorder, single episode, unspecified; Z96.612 Presence of left artificial shoulder joint; M25.711 Osteophyte, right shoulder; M24.011 Loose body in right shoulder; Z87.891 Personal history of nicotine dependence
CPT/HCPCS: 36415; 64450; 73030; 85027; 94760; 97116; 97162; 97530; C1776; J1100; J2250; J2405; J2704; J2795; J3010